=== PATIENT | male | born 1940 ===

== ENCOUNTER 2024-12-14 14:56 | Inpatient (IN) | payer OTHER ==
[~2024-12-14] VITALS: Ht 170.2 cm; Wt 71.7 kg
[~2024-12-14 14:56] MED LIST: AMBIEN10 MG PO; CARVEDILOL12.5 MG; ENTRESTO 97 MG1 EACH PO; EPLERENONE25 MG PO; FARXIGA5 MG PO; HORIZANT300 MG PO; LIPITOR40 MG PO; PLAVIX75 MG PO; XARELTO2.5 MG PO; ZETIA10 MG PO
[2024-12-14 15:18] LABS: COVID-19 AG NEGATIVE (NEGATIVE)
[2024-12-24] MEDS ORDERED: 0.9 % SODIUM CHLORIDE 1,000 ML IV SCH (07:30)
[2024-12-24] MEDS ORDERED: PROMETHAZINE HCL 50 MG/ML AMPUL IM PRN (07:30)
[2024-12-24] MEDS ORDERED: ENALAPRILAT DIHYDRATE 1.25 MG/ML VIAL IV PRN (07:30)
[2024-12-24] MEDS ORDERED: CEFAZOLIN SODIUM 1,000 MG in 0.9 % SODIUM CHLORIDE 50 ML IV SCH (09:00)
[2024-12-24] MEDS ORDERED: VANCOMYCIN HCL 1,000 MG VIAL IV SCH (09:00)
[2024-12-24] MEDS ORDERED: CARVEDILOL 12.5 MG TABLET PO SCH (09:00)
[2024-12-24] MEDS ORDERED: DOCUSATE SODIUM 100MG CAP PO SCH (09:00)
[2024-12-24] MEDS ORDERED: MORPHINE SULFATE 4 MG/ML CARTRIDGE IV SCH (09:00)
[2024-12-24] MEDS ORDERED: METHYLPREDNISOLONE SOD SUCC 125 MG VIAL IV SCH (09:00)
[2024-12-24] MEDS ORDERED: TAMSULOSIN HCL 0.4 MG CAP PO SCH (09:00)
[2024-12-24] MEDS ORDERED: ATORVASTATIN CALCIUM 40 MG TABLET PO SCH (09:00)
[2024-12-24] MEDS ORDERED: ACETAMINOPHEN 500 MG GEL..CAP PO SCH (20:00)
[2024-12-24] MEDS ORDERED: GABAPENTIN 800 MG TABLET PO SCH (21:00)
[2024-12-24] MEDS ORDERED: ZOLPIDEM TARTRATE 10 MG TABLET PO SCH (21:00)
[2024-12-25] MEDS ORDERED: SODIUM CHLORIDE 0.45 % 1,000 ML IV SCH
[2024-12-25] MEDS ORDERED: OxyCODONE HCL 5 MG TABLET (ROXICODONE) PO SCH (06:01)
[2025-01-18] MEDS ORDERED: METHYLPREDNISOLONE SOD SUCC 125 MG VIAL ONE ×2 (07:08→15:46)
[2025-01-18] MEDS ORDERED: ISOPROPYL ALCOHOL 30 ML OUNCE TOP ONE (07:09)
[2025-01-18] MEDS ORDERED: VANCOMYCIN HCL 1,000 MG VIAL ONE ×2 (07:09→19:28)
[2025-01-18] MEDS ORDERED: PERCOCET 5-3251 EACH PO (07:22)
[2025-01-18] MEDS ORDERED: MEDROLPACK PO (07:23)
[2025-01-18] MEDS ORDERED: AMOX-CLAV 875-1 EACH PO (07:23)
[2025-01-18] MEDS ORDERED: COLACE100 MG PO (07:23)
[2025-01-18] MEDS ORDERED: GABAPENTIN100 M2 PO (07:24)
[2025-01-18] MEDS ORDERED: ONDANSETRON ODT8 MG PO (07:24)
[2025-01-18] MEDS ORDERED: NEURONTIN800 MG PO (07:24)
[2025-01-18] MEDS ORDERED: ENALAPRILAT DIHYDRATE 1.25 MG/ML VIAL IV PRN (07:30)
[2025-01-18] MEDS ORDERED: 0.9 % SODIUM CHLORIDE 1,000 ML IV SCH (07:30)
[2025-01-18] MEDS ORDERED: PROMETHAZINE HCL 50 MG/ML AMPUL IM PRN (07:30)
[2025-01-18] MEDS ORDERED: CEFAZOLIN SODIUM 1,000 MG VIAL ONE ×2 (08:53→15:46)
[2025-01-18] MEDS ORDERED: VANCOMYCIN HCL 1,000 MG VIAL IV SCH (09:00)
[2025-01-18] MEDS ORDERED: METHYLPREDNISOLONE SOD SUCC 125 MG VIAL IV SCH (09:00)
[2025-01-18] MEDS ORDERED: DOCUSATE SODIUM 100MG CAP PO SCH (09:00)
[2025-01-18] MEDS ORDERED: CEFAZOLIN SODIUM 1,000 MG in 0.9 % SODIUM CHLORIDE 50 ML IV SCH (09:00)
[2025-01-18] MEDS ORDERED: MORPHINE SULFATE 4 MG/ML CARTRIDGE IV SCH (09:00)
[2025-01-18] MEDS ORDERED: TAMSULOSIN HCL 0.4 MG CAP PO SCH (09:00)
[2025-01-18] MEDS ORDERED: METHYLPREDNISOLONE ACETATE 80 MG/ML VIAL ONE (09:13)
[2025-01-18] MEDS ORDERED: CARVEDILOL 12.5 MG TABLET PO SCH (17:00)
[2025-01-18 17:11] VITALS: BP 156/84; O2SAT 95
[2025-01-18] MEDS ORDERED: ACETAMINOPHEN 500 MG GEL..CAP PO SCH (20:00)
[2025-01-18] MEDS ORDERED: ZOLPIDEM TARTRATE 10 MG TABLET PO SCH ×2 (21:00)
[2025-01-18] MEDS ORDERED: GABAPENTIN 800 MG TABLET PO SCH (21:00)
[2025-01-19] MEDS ORDERED: SODIUM CHLORIDE 0.45 % 1,000 ML IV SCH
[2025-01-19 00:33] VITALS: BP 114/69; O2SAT 96
[2025-01-19] MEDS ORDERED: OxyCODONE HCL 5 MG TABLET (ROXICODONE) PO SCH (06:01)
[2025-01-19 07:06] LABS: BASO % 0.1 % (0.1-1.2); EOS # 0.00 (0.04-0.54); EOS % 0.0 % (0.7-7.0); LYMPH # 0.97 (1.18-3.74); LYMPH % 6.1 % (19.3-53.1); MEAN PLATELET VOLUME 11.40 fl (9.4-12.4); MONO # 0.46 (0.24-0.82); MONO % 2.9 % (4.7-12.5); NEUT # 14.34 (1.56-6.13); NEUT % 90.5 % (34.0-71.1); RED CELL DISTRIBUTION WIDTH 12.5 % (11.6-14.4)
[2025-01-19] MEDS ORDERED: ATORVASTATIN CALCIUM 40 MG TABLET PO SCH (09:00)
[2025-01-19] MEDS ORDERED: ENOXAPARIN SODIUM 40 MG/0.4 ML SYRINGE SUBCUTANEO SCH (09:00)
[2025-01-19] MEDS ORDERED: SODIUM CL 0.9% 50 ML IV.SOLN IV ONE (09:21)
[2025-01-19 10:37] LABS: BUN CREA RATIO 16.0 (7.0-25.0); CREATININE SERUM 1.4 mg/dL (0.70-1.30); GFR 48.52; GLUCOSE FASTING 140.0 mg/dL (65-100); OSMOLALITY SERUM 298.0 MOSM/KG (275-295)
[2025-01-19 17:04] VITALS: BP 125/70; O2SAT 98
[2025-01-20 00:49] VITALS: BP 134/73; O2SAT 94
[2025-01-20 08:00] VITALS: BP 142/75; O2SAT 18
[2025-01-20 11:02] LABS: COVID-19 AG NEGATIVE (NEGATIVE)
== END 2025-01-20 15:53 | disposition home or self-care (01) | DRG 428 ==
LOC: O/R 12-24 09:00 → SURH 12-24 09:00 → O/R 01-18 07:00 → SURH 01-18 11:30 → SURG 01-18 15:25 → SURH 01-18 16:06
PROVIDERS: ADMIT Orthopaedic Surgery Orthopaedic Surgery of the Spine; ATTEND Orthopaedic Surgery Orthopaedic Surgery of the Spine
PROC: 0SG0071 Fusion of Lumbar Vertebral Joint with Autologous Tissue Substitute, Posterior Approach, Posterior Column, Open Approach (ICD-10-PCS; 2025-01-18)
PROC: XRGB0R7 Fusion of Lumbar Vertebral Joint using Custom-Made Anatomically Designed Interbody Fusion Device, Open Approach, New Technology Group 7 (ICD-10-PCS; 2025-01-18)
PROC: 0ST20ZZ Resection of Lumbar Vertebral Disc, Open Approach (ICD-10-PCS; 2025-01-18)
PROC: 0QB30ZZ Excision of Left Pelvic Bone, Open Approach (ICD-10-PCS; 2025-01-18)
PROC: 07DR3ZZ Extraction of Iliac Bone Marrow, Percutaneous Approach (ICD-10-PCS; 2025-01-18)
PROC: 4A12X4Z Monitoring of Cardiac Electrical Activity, External Approach (ICD-10-PCS; 2025-01-18)
PROC: 0SG00A0 Fusion of Lumbar Vertebral Joint with Interbody Fusion Device, Anterior Approach, Anterior Column, Open Approach (ICD-10-PCS; principal; 2025-01-18 14:00)
DX: M51.361 Other intervertebral disc degeneration, lumbar region with lower extremity pain only (principal); M48.062 Spinal stenosis, lumbar region with neurogenic claudication; I10 Essential (primary) hypertension; E11.9 Type 2 diabetes mellitus without complications; Z79.4 Long term (current) use of insulin